=== PATIENT | male | born 1970 | race African-American/Black ===

== ENCOUNTER 2022-05-29 17:02 | Emergency (ER) | payer SELFPAY ==
[2022-05-29] MEDS ORDERED: Orphenadrine Citrate 60 MG/2 ML VIAL ONE (17:40)
[2022-05-29] MEDS ORDERED: Ketorolac Tromethamine 30 MG/ML VIAL ONE (18:23)
== END 2022-05-29 18:48 | disposition home or self-care (01) ==
LOC: MADERS 17:02
DX: M54.31 Sciatica, right side (principal); I10 Essential (primary) hypertension; F17.210 Nicotine dependence, cigarettes, uncomplicated; M41.9 Scoliosis, unspecified
CPT/HCPCS: 96372; 99283; J1885; J2360

== ENCOUNTER 2024-07-11 10:23 | Emergency (ER) | payer OTHER, SELFPAY ==
[2024-07-11] MEDS ORDERED: Ibuprofen 800 MG TAB ONE (11:33)
[2024-07-11] MEDS ORDERED: HYDROcodone/Acetaminophen 5/325 mg Tablet ONE (11:34)
== END 2024-07-11 13:44 | disposition home or self-care (01) ==
LOC: MADERS 10:23
DX: M54.12 Radiculopathy, cervical region (principal); M25.511 Pain in right shoulder; F17.210 Nicotine dependence, cigarettes, uncomplicated; I10 Essential (primary) hypertension
CPT/HCPCS: 72125

== ENCOUNTER 2025-09-25 09:20 | Emergency (ER) | payer OTHER, SELFPAY ==
[2025-09-25] MEDS ORDERED: Ketorolac Tromethamine 30 MG (1 mL) VIAL ONE (10:12)
[2025-09-25] MEDS ORDERED: Dexamethasone 10 MG/ML VIAL ONE (10:12)
[2025-09-25] MEDS ORDERED: Cyclobenzaprine 10 MG TAB ONE (10:12)
[2025-09-25] MEDS ORDERED: HYDROcodone/Acetaminophen 5/325 mg Tablet ONE (10:12)
== END 2025-09-25 10:33 | disposition home or self-care (01) ==
LOC: MADERS 09:20
DX: M54.41 Lumbago with sciatica, right side (principal); G89.29 Other chronic pain; I10 Essential (primary) hypertension; F17.210 Nicotine dependence, cigarettes, uncomplicated
CPT/HCPCS: 96372; 99283; J1100; J1885